=== PATIENT | male | born 1995 ===

== ENCOUNTER 2018-07-11 17:07 | Emergency (ER) | payer OTHER ==
--- NOTE | 2018-07-11 18:01 | ED ---
Head Injury - HPI Summary HPI Summary: Pt presents wondering if he has a concussion. He was playing soccer at 14:00 on grass field when he fell onto Lt shoulder and then hit his head on the ground. Denies LOC, amnesia, neck pain, [place], change in vision, rhinorrhea, otorrhea, change in hearing, difficulty breathing or swallowing, numbness, tingling, weakness. Basically, pt has had no sx since injury. Shoulder is also without pain, restriction or deformity. H/o concussion at 2 y.o. - mild and no residual effects. - History Of Current Complaint Chief Complaint: EDHeadInjury Stated Complaint: HEAD INJURY Time Seen by Provider: 07/11/18 17:32 Hx Obtained From: Patient Pain Intensity: 1 - Allergies/Home Medications Allergies/Adverse Reactions: Allergies Allergy/AdvReac Type Severity Reaction Status Date / Time No Known Allergies Allergy Verified 07/11/18 17:11 PMH/Surg Hx/FS Hx/Imm Hx Previously Healthy: Yes Endocrine/Hematology History: Denies: Hx Anticoagulant Therapy, Hx Blood Disorders - Immunization History Immunizations Up to Date: Yes Infectious Disease History: No Infectious Disease History: Reports: Traveled Outside the [place] in Last 30 Days - [place] - Family History Known Family History: Positive: None - Social History Occupation: Student Lives: Dormitory/Roommates Alcohol Use: Occasionally Hx Substance Use: No Substance Use Type: Reports: None Hx Tobacco Use: No Smoking Status (MU): Never Smoked Tobacco Review of Systems Constitutional: Negative Negative: Fatigue Eyes: Negative ENT: Negative Respiratory: Negative Gastrointestinal: Negative Negative: Vomiting, Nausea Positive: no symptoms reported Musculoskeletal: Negative Positive: Bruising - small area of red spot on Lt side of head where he hit the ground Neurological: Negative Psychological: Normal All Other Systems Reviewed And Are Negative: Yes Physical Exam Triage Information Reviewed: Yes Vital Signs On Initial Exam: Initial Vitals Temp Pulse Resp BP Pulse Ox 98 F 112 16 111/63 100 07/11/18 17:11 07/11/18 17:11 07/11/18 17:11 07/11/18 17:11 07/11/18 17:11 Vital Signs Reviewed: Yes Appearance: Positive: Well-Appearing, No Pain Distress, Well-Nourished Skin: Positive: Warm, Skin Color Reflects Adequate Perfusion, Dry - mulitple < 1mm macular erythematous spots over Lt scalp where pt made contact with ground - NTTP, no skin breakdown, no hematoma, step off, crepitus Head/Face: Positive: Normal Head/Face Inspection - no step off, no battlesign, no racoon eyes Eyes: Positive: Normal, EOMI, TRAMAINE - no photophobia, Conjunctiva Clear ENT: Positive: Pharynx normal - atraumatic. Negative: Nasal drainage, Sinus tenderness Dental: Negative: Dental Fracture @ Neck: Positive: Supple, Tenderness @ - Lt paracervical m tenderness (mild) Respiratory/Lung Sounds: Positive: Clear to Auscultation, Breath Sounds Present Cardiovascular: Positive: Normal Abdomen Description: Positive: Nontender Musculoskeletal: Positive: Normal, Strength/ROM Intact Neurological: Positive: Normal, Sensory/Motor Intact, Alert, Oriented to Person Place, Time, CN Intact II-III, Facial Symmetry, Speech Normal. Negative: Babinski Left, Babinski Right, Pronator Drift Present Psychiatric: Positive: Normal Diagnostics - Vital Signs Vital Signs Temp Pulse Resp BP Pulse Ox 07/11/18 17:11 98 F 112 16 111/63 100 - Laboratory Lab Statement: Any lab studies that have been ordered have been reviewed, and results considered in the medical decision making process. Head Injury Course/Dx Course Of Treatment: Pt presents w/ request for a ME to assess for concussion. His HPI and clinical presentation do not illicit this dx however was given education to rest and monitor his sx for concussion sx. He will touch base with [facility] if minor sx present, will return to ED if danger s/sx present. - Diagnoses Provider Diagnoses: Head injury Discharge - Sign-Out/Discharge Documenting (check all that apply): Patient Departure - Discharge Plan Condition: Stable Disposition: HOME Patient Education Materials: Head Injury (ED) Referrals: [facility] - Jose Luis DAMICO [Medical Doctor] - Additional Instructions: Avoid anything that could alter your mental status to prevent masking delayed concussion symptoms (ie. no alcohol, drugs, etc). Rest. If you develop mild symptoms such as a low grade headache, nausea, etc you may follow-up with [facility] on Friday. *If you develop change in vision, vomiting, dizziness, numbness, weakness, syncope or slurred speech, return to ED - Billing Disposition and Condition Condition: STABLE Disposition: Home
[2018-07-11 18:44] VITALS: BP 115/68
== END 2018-07-11 18:20 | disposition home or self-care (01) ==
LOC: ED 17:07
DX: S09.90XA Unspecified injury of head, initial encounter (principal); W19.XXXA Unspecified fall, initial encounter; Y93.66 Activity, soccer; Y92.39 Other specified sports and athletic area as the place of occurrence of the external cause
CPT/HCPCS: 99281